=== PATIENT | male | born 1955 | race Caucasian/White ===

== ENCOUNTER → 2020-05-12 08:23 | Outpatient (CLI) | payer MEDICARE, OTHER, SELFPAY ==
[2020-05-12] MEDS: COVID-19 VACC #1, MRNA(MOD) 100 MCG/0.5 ML VIAL IM (09:05)
== END ==
PROVIDERS: Visit Provider Internal Medicine
DX: Z23 Encounter for immunization (principal)
CPT/HCPCS: 0011A; 91301

== ENCOUNTER → 2020-06-09 07:56 | Outpatient (CLI) | payer MEDICARE, OTHER, SELFPAY ==
[2020-06-09] MEDS: COVID-19 VACC #2, MRNA(MOD) 100 MCG/0.5 ML VIAL IM (08:03)
== END ==
PROVIDERS: Visit Provider Internal Medicine
DX: Z23 Encounter for immunization (principal)
CPT/HCPCS: 0012A; 91301

== ENCOUNTER → 2020-07-20 09:40 | Outpatient (CLI) | payer MEDICARE, OTHER, SELFPAY ==
--- NOTE | 2020-07-20 09:45 | DI.RAD.S_ITS ---
PROCEDURE: XR KNEE RT 3V INDICATIONS: RT KNEE PAIN TECHNIQUE: 3 views of the knee were acquired. COMPARISON: None. FINDINGS: Bones: No acute fracture. Chondrocalcinosis is noted. Scattered degenerative subchondral sclerosis and spurring. Mild lateral patellar tilt. There is minimal narrowing of the medial and lateral joint spaces. Soft tissues: Small joint effusion. IMPRESSION: Chondrocalcinosis Mild right knee osteoarthritis Small joint effusion. If the patient's pain or other symptoms persist, consider further evaluation with MRI Dictated by: Bc Navarrete M.D. on 07/20/2020 at 11:28 Approved by: Bc Navarrete M.D. on 07/20/2020 at 11:29
== END ==
PROVIDERS: PCP Family Medicine; Referring Provider Family Medicine; Visit Provider Family Medicine
DX: M25.561 Pain in right knee (principal); M17.11 Unilateral primary osteoarthritis, right knee; M11.261 Other chondrocalcinosis, right knee; M25.461 Effusion, right knee
CPT/HCPCS: 73562

== ENCOUNTER → 2020-07-29 19:35 | Outpatient (CLI) | payer MEDICARE, OTHER, SELFPAY ==
--- NOTE | 2020-07-29 | DI.MRI.S_ITS ---
PROCEDURE: MR KNEE RT WO CON INDICATIONS: Right Knee Pain TECHNIQUE: Noncontrast sagittal PD fast spin echo and T2 fast spin echo with fat saturation, sagittal 3-D FLASH with fat saturation; coronal T1 spin echo and PD fast spin echo with fat saturation, and axial PD fast spin echo with fat saturation through the knee. COMPARISON: [facility], CR, XR KNEE RT 3V, 07/20/2020, 9:58. FINDINGS: Image quality: Diagnostic. Menisci: There is a horizontally oriented longitudinal tear in the anterior horn of lateral meniscus involving the superior articular surface and free edge. Mild extension is also demonstrated to the free edge in the body of the lateral meniscus. There is mild intermediate signal within the posterior horn of the lateral meniscus without extension to an articular surface to suggest a tear. The medial meniscus demonstrates mild radial tearing along the free edge in the body and posterior horn. The meniscal root ligaments appear intact. Cruciate ligaments: The anterior and posterior cruciate ligaments appear intact. Medial structures: The medial collateral ligament appears intact. The semimembranosus tendon insertions and meniscocapsular junction appear intact. Visualized portions of the pes anserinus tendons appear intact without associated bursal fluid collections. Lateral structures: The lateral collateral ligament, long and short heads of the biceps femoris tendon appear intact. The popliteus tendon appears intact. Iliotibial band appears normal. Anterior structures: The quadriceps and patellar tendons appear intact. There is a slight lateral tilt and shift of the patella. No femoral trochlear dysplasia or ventral trochlear prominence. No edema in the infrapatellar fat pad. Bones and cartilage: Mild bone marrow edema is demonstrated peripherally within the medial tibial plateau which may represent reactive subchondral edema from overlying chondral degeneration or a bone contusion. No definite fracture identified. Mild tricompartmental osteophytosis is present. There is mild cartilage thinning in the medial compartment with mild chondral fissuring. In the lateral compartment, there is also mild cartilage thinning with superficial chondral fissuring. In the patellofemoral compartment, there is mild cartilage thinning with superficial chondral fissuring. Joint space: There is a small joint effusion. There is minimal fluid in the expected region of a Cantrell's cyst. There is edema tracking inferiorly along the medial head of the gastrocnemius which may represent sequelae of a ruptured Cantrell's cyst. Normal appearing synovial plicae are incidentally noted. IMPRESSION: 1. Tearing of the medial and lateral menisci as described. 2. Mild to moderate tricompartmental osteoarthritic changes with areas of predominantly superficial chondral fissuring. 3. Bone marrow edema within the medial tibial plateau peripherally may reflect reactive subchondral edema from overlying chondral degeneration or a bone contusion. 4. Small amount of fluid and edema tracking inferiorly along the medial head of the gastrocnemius may reflect sequelae of a repeat Cantrell's cyst. Recommend correlation clinically. 5. Small joint effusion. Dictated by: Shola Dhillon M.D. on 07/30/2020 at 9:33 Approved by: Shola Dhillon M.D. on 07/30/2020 at 9:41
== END ==
PROVIDERS: PCP Family Medicine; Referring Provider Family Medicine; Visit Provider Family Medicine
DX: M25.561 Pain in right knee (principal); S83.281A Other tear of lateral meniscus, current injury, right knee, initial encounter; S83.241A Other tear of medial meniscus, current injury, right knee, initial encounter; M25.461 Effusion, right knee
CPT/HCPCS: 73721

== ENCOUNTER → 2021-03-02 13:47 | Outpatient (CLI) | payer MEDICARE, OTHER, SELFPAY ==
--- NOTE | 2021-03-02 13:50 | DI.CT.S_ITS ---
2PROCEDURE: CT HEAD/BRAIN WO CON INDICATIONS: CONCUSSION TECHNIQUE: Noncontrast 4.5 mm thick angled axial sections acquired from the foramen magnum to the vertex, with coronal and sagittal reformats. For radiation dose reduction, the following was used: automated exposure control, adjustment of mA and/or kV according to patient size. COMPARISON: None. FINDINGS: Image quality: Excellent. CSF spaces: Basal cisterns are patent. No extra-axial fluid collections. The ventricles are symmetric in size and shape. Brain: No intracranial bleeds or masses. There is cerebral volume loss for age, with resultant ventricular and sulcal prominence. There are periventricular and deep white matter chronic small vessel ischemic changes. There is intracranial internal carotid artery atherosclerosis. Skull and face: Posterior scalp contusion can be seen. No underlying calvarial fracture can be seen. Calvarium and visualized facial bones appear intact, without suspicious lesions. Sinuses: Visualized sinuses and mastoids are clear. IMPRESSION: No acute intracranial hemorrhage is seen. No acute intracranial process is seen. Posterior scalp contusion seen, without an associated calvarial fracture. Dictated by: Sukhdev Sifuentes M.D. on 03/02/2021 at 13:48 Approved by: Sukhdev Sifuentes M.D. on 03/02/2021 at 13:49
== END ==
PROVIDERS: PCP Family Medicine; Referring Provider Family Medicine; Visit Provider Family Medicine
DX: S06.0X9A Concussion with loss of consciousness of unspecified duration, initial encounter (principal)
CPT/HCPCS: 70450

== ENCOUNTER → 2022-04-26 15:58 | Outpatient (CLI) | payer MEDICARE, OTHER, SELFPAY ==
[2022-04-26 16:28] LABS: BUN Creatinine Ratio 15.3 (6-22); Blood Urea Nitrogen 15 mg/dL (9-20); Estimated Glomerular Filt Rate > 60 mL/min (>60)
== END ==
PROVIDERS: PCP Family Medicine; Referring Provider Surgery; Visit Provider Surgery
DX: R19.7 Diarrhea, unspecified (principal)
CPT/HCPCS: 36415; 82565; 84520; 99213

== ENCOUNTER → 2022-04-27 09:10 | Outpatient (CLI) | payer MEDICARE, OTHER, SELFPAY ==
--- NOTE | 2022-04-27 09:11 | DI.CT.S_ITS ---
PROCEDURE: CT ABDOMEN PELVIS W CON INDICATIONS: Chronic diarrhea TECHNIQUE: After the administration of intravenous contrast, axial sections acquired from the lung bases to the pubic symphysis. Coronal and sagittal reformats were performed. For radiation dose reduction, the following was used: automated exposure control, adjustment of mA and/or kV according to patient size. COMPARISON: None. FINDINGS: Image quality: Excellent. Lung bases: Unremarkable. Heart: No significant findings. ABDOMEN: Liver: Unremarkable. Gallbladder: Unremarkable. Biliary ducts: Unremarkable. Pancreas: Unremarkable. Spleen: Unremarkable. Adrenal Glands: There is a 1.2 cm in diameter intermediate density right adrenal gland nodule (series 2/image 25). The left adrenal gland is unremarkable. Kidneys and Ureters: Kidneys are normal in size and enhancement. There are bilateral low-density pararenal cysts. Stomach and Bowel: Stomach, small bowel loops, and colon are unremarkable. The appendix is thin walled and gas filled. Peritoneum: No abnormal intraperitoneal fluid. No free air. Ventral Wall: No hernias. Abdominal Nodes: No retroperitoneal or mesenteric adenopathy by size criteria. Vessels: Aorta and inferior vena cava are normal in size. PELVIS: Pelvic Organs: Unremarkable. Bladder: Unremarkable. Pelvic Nodes: No enlarged lymph nodes. Miscellaneous: No hernias are seen. Bones: Unremarkable. IMPRESSION: 1. No acute intra-abdominal findings. Normal appendix. 2. No findings to explain change in bowel habits. Dictated by: Komal Walters M.D. on 04/27/2022 at 12:30 Approved by: Komal Walters M.D. on 04/27/2022 at 12:41
== END ==
PROVIDERS: PCP Family Medicine; Referring Provider Surgery; Visit Provider Surgery
DX: R19.7 Diarrhea, unspecified (principal)
CPT/HCPCS: 74177; 87045; 87177; 87899; Q9967

== ENCOUNTER 2022-05-11 07:09 | Day surgery (SDC) | payer MEDICARE, OTHER, SELFPAY ==
--- NOTE | 2022-05-11 | PATH_ITS ---
[facility] Accession Number: [id number] No. of containers..06 Tissue . 01 Material submitted: . PART A: duodenum - DUODENUM BIOPSIES PART B: gastrointestinal site - ANTRUM BIOPSIES PART C: colon - RIGHT COLON BIOPSY PART D: colon - TRANSVERSE COLON BIOPSY PART E: colon - LEFT COLON BIOPSY PART F: rectum - RECTAL COLON BX . 01 Diagnosis: A. Duodenum, Biopsies: Small bowel mucosa with no diagnostic abnormality. Negative for active inflammation, features of sprue, dysplasia, or malignancy. . B. Antrum, Biopsies: Gastric antral and body mucosa with features of reactive gastropathy. Negative for Helicobacter organisms by immunohistochemistry. Negative for intestinal metaplasia. Negative for dysplasia or malignancy. . C-F: Right, Transverse, Left Colon, Rectum, Biopsies: Colonic mucosa with no diagnostic abnormality. Negative for active, chronic, and microscopic colitis. Negative for dysplasia and malignancy. . [facility] 05/17/2022 1745 Local . 01 Electronically signed: . Yung Kay MD, PhD, Pathologist NPI- [id number] . 01 Gross description: . Part A: DUODENUM BIOPSIES: Received in formalin are 4 fragment(s) of moe, soft tissue measuring 0.2 x 0.1 x 0.1 cm to 0.1 x 0.1 x 0.1 cm submitted entirely in 1 cassette(s) Part B: ANTRUM BIOPSIES: Received in formalin are 4 fragment(s) of moe, soft tissue measuring 0.2 x 0.2 x 0.1 cm to 0.1 x 0.1 x 0.1 cm submitted entirely in 1 cassette(s) Part C: RIGHT COLON BIOPSY: Received in formalin are 2 fragment(s) of moe, soft tissue measuring 0.3 x 0.2 x 0.1 cm to 0.2 x 0.1 x 0.1 cm submitted entirely in 1 cassette(s) Part D: TRANSVERSE COLON BIOPSY: Received in formalin is 1 fragment(s) of moe, soft tissue measuring 0.4 x 0.2 x 0.1 cm submitted entirely in 1 cassette(s) Part E: LEFT COLON BIOPSY: Received in formalin are 2 fragment(s) of moe, soft tissue measuring 0.3 x 0.1 x 0.1 cm to 0.2 x 0.1 x 0.1 cm submitted entirely in 1 cassette(s) Part F: RECTAL COLON BX: Received in formalin are 2 fragment(s) of moe, soft tissue measuring 0.2 x 0.2 x 0.2 cm to 0.2 x 0.1 x 0.1 cm submitted entirely in 1 cassette(s) /CPE 05/12/2022 0616 Local . 01 Microscopic: . B. An immunohistochemical stain was performed to evaluate for Helicobacter organisms and is negative. The control stain showed appropriate reactivity. . * This test was developed and its performance characteristics determined by [employer]. It has not been cleared or approved by the U.S. Food and Drug Administration. The FDA has determined that such clearance or approval is not necessary. This test is used for clinical purposes. It should not be regarded as investigational or for research. . 01 Pathologist provided ICD-10: R19.7, K29.70 . 01 CPT . 438627, 767153, 054793, 924710, 497735, 832708, [id number] Specimen Comment: A courtesy copy of this report has been sent to [phone] Performed at: 01 [facility] [address] [place] [address], [place], [place] [id number] MD Shola Hansen MD Phone: [phone]
[2022-05-11 07:20] VITALS: BP 138/86; PULSE 88; RESP 16; TEMP 36.3; O2SAT 97; BMI 30.8
[2022-05-11] MEDS: LACTATED RINGERS 1,000 ML 120 ML IV (07:37)
--- NOTE | 2022-05-11 08:13 | PM.PREOP ---
Pre-operative Note COVID-19 COVID-19 status: Not tested Interval Note History & Physical reviewed/Exam performed by Physician: Yes Changes to H&P: Yes H&P completed within 30 days and has changed as indicated here:: Normal CT scan and negative stool O&P tests have resulted since our last visit ASA Class (for procedural sedation): II
--- NOTE | 2022-05-11 08:47 | PM.OP.EC ---
Operative Date/Time/Diagnoses Date of procedure: 05/11/22 Time of procedure: 08:47 Pre-op diagnosis: Chronic diarrhea Post-op diagnosis: same Procedure & Clinicians Study performed: EGD and colonoscopy Same procedure as scheduled: Yes Surgeon: Matthew Jorge Procedure Notes Procedure in detail: Surgeon: Matthew Jorge MD Anesthesia: Chelsea Ramirez CRNA Procedure in detail: A timeout was performed. A bite blocked was placed and monitors were attached to the patient. The patient was positioned in a left lateral decubitus position. Sedation was administered by Chelsea Low CRNA. Once the patient was sedated the endoscope was inserted through the bite block and passed through the esophagus and stomach and into the duodenum. No obvious abnormalities were seen in the duodenum. Random biopsies were taken from the second portion of the duodenum. Duodenal bulb was normal. We then withdrew the scope into the stomach. There was mild antritis and random biopsies were taken from the antrum. There were some flecks of old blood throughout the stomach but no obvious ulceration. The endoscope was retroflexed and no hiatal hernia was seen. The endoscope was straightned and withdrawn into the esophagus. No abnormalities were seen in the esophagus. Findings: Mild antritis Next we repositioned the patient for a colonoscopy. A digital rectal exam was performed and was normal. The colonoscope was inserted and advanced to the cecum. The appendiceal orifice was identified and photographed. The scope was slowly withdrawn over greater than 6 minutes. No abnormalities were seen. Random biopsies were taken from the right colon, transverse colon, left colon and rectum. The scope was retroflexed in the rectum and no other abnormalities were seen. Findings: Normal colon EBL: 5 mL Scope withdrawal time: 11 minutes Sedation minutes: 22 minutes Post-procedure Disposition: PACU
[2022-05-11 08:50] VITALS: BP 107/75; PULSE 89; RESP 12; TEMP 36.2; O2SAT 95
[2022-05-11 08:56] VITALS: BP 100/71; PULSE 82; RESP 14; O2SAT 96
[2022-05-11 09:00] VITALS: BP 122/82; PULSE 80; RESP 16; O2SAT 96
== END 2022-05-11 09:44 | disposition home or self-care (01) ==
PROVIDERS: PCP Family Medicine; Referring Provider Surgery; Visit Provider Surgery
PROC: 0DJ08ZZ Inspection of Upper Intestinal Tract, Via Natural or Artificial Opening Endoscopic (ICD-10-PCS; CPT 43235; principal; 2022-05-11 08:15)
PROC: 0DJD8ZZ Inspection of Lower Intestinal Tract, Via Natural or Artificial Opening Endoscopic (ICD-10-PCS; CPT 45378; 2022-05-11 08:15)
DX: R19.7 Diarrhea, unspecified (principal); K29.50 Unspecified chronic gastritis without bleeding; K31.9 Disease of stomach and duodenum, unspecified
CPT/HCPCS: 45380; 43239; J2704

== ENCOUNTER → 2022-05-20 12:09 | Outpatient (CLI) | payer MEDICARE, OTHER, SELFPAY ==
--- NOTE | 2022-05-20 12:11 | DI.MRI.S_ITS ---
PROCEDURE: MR LUMBAR SPINE WO CON INDICATIONS: Low back pain, unspecified TECHNIQUE: Noncontrast sagittal T1 spin echo and T2 fast echo, sagittal STIR, and T2 fast spin echo through the lumbar spine. In cases with scoliosis, additional coronal T2 fast spin echo may be performed. COMPARISON: [facility], CT, CT ABDOMEN PELVIS W CON, 04/27/2022, 10:36. FINDINGS: Image quality: Excellent. Alignment and Curvature: 5 lumbar type vertebral bodies are present by CT. There is loss of normal lumbar lordosis. Roughly 3 mm of retrolisthesis of L1 on L2. 4 mm of retrolisthesis of L2 on L3 , L3 on L4, L4 on L5, and L5 on S1. Bone Marrow: Marrow is of normal overall signal. No acute vertebral body compression fractures. Mild reactive signal throughout the endplates of the lumbar and lower thoracic spine. Spinal Cord: Conus medullaris terminates at the L1-L2 disc space level. Visualized cord demonstrates normal signal and size. Paraspinous Soft Tissues: No paravertebral masses. T12-L1: Mild disc height loss and desiccation. Mild facet and ligamentum flavum hypertrophy. Mild epidural lipomatosis. No significant canal, or foraminal stenosis. L1-L2: Mild disc height loss. Moderate disc desiccation. Mild diffuse disc bulge. Mild facet and ligamentum flavum hypertrophy. Mild epidural lipomatosis. Mild canal stenosis. Mild bilateral foraminal stenosis. L2-L3: Mild disc desiccation and diffuse disc bulge. Mild epidural lipomatosis. Mild canal stenosis. Mild bilateral foraminal stenosis. L3-L4: Mild disc height loss and desiccation. Moderate diffuse disc bulge. Mild facet and ligamentum flavum hypertrophy. Mild epidural lipomatosis. Mild canal stenosis. Mild bilateral foraminal stenosis. L4-L5: Mild disc desiccation and diffuse disc bulge. Mild facet and ligamentum flavum hypertrophy. Mild epidural lipomatosis. Mild canal stenosis. Mild left foraminal stenosis. No right foraminal stenosis. L5-S1: Severe disc height loss and desiccation. Moderate diffuse disc bulge. Mild bilateral facet hypertrophy. Mild canal stenosis. Mild bilateral foraminal stenosis. IMPRESSION: 1. Multilevel degenerative disc and facet disease, as well as ligamentum flavum hypertrophy and epidural lipomatosis. 2. Mild multilevel canal and foraminal stenoses. No neural impingement. Dictated by: Gian Felix M.D. on 05/22/2022 at 9:36 Approved by: Gian Felix M.D. on 05/22/2022 at 10:12
== END ==
PROVIDERS: PCP Family Medicine; Referring Provider Family Medicine; Visit Provider Family Medicine
DX: M54.50 Low back pain, unspecified (principal); M51.36 Other intervertebral disc degeneration, lumbar region; M47.816 Spondylosis without myelopathy or radiculopathy, lumbar region; M46.06 Spinal enthesopathy, lumbar region; E88.2 Lipomatosis, not elsewhere classified; M48.061 Spinal stenosis, lumbar region without neurogenic claudication
CPT/HCPCS: 72148

== ENCOUNTER → 2022-11-01 15:19 | Outpatient (CLI) | payer MEDICARE, OTHER, SELFPAY ==
[2022-11-02 13:12] LABS: PSA, Total 0.1 ng/mL (0.0-4.0)
== END ==
PROVIDERS: PCP Family Medicine; Referring Provider Family Medicine; Visit Provider Family Medicine
DX: Z00.00 Encounter for general adult medical examination without abnormal findings (principal); Z12.5 Encounter for screening for malignant neoplasm of prostate
CPT/HCPCS: 36415; 84153; 84154; G0103

== ENCOUNTER → 2023-11-18 12:49 | Outpatient (CLI) | payer MEDICARE, OTHER, SELFPAY ==
--- NOTE | 2023-11-18 13:11 | DI.CT.S_ITS ---
PROCEDURE: CT ABDOMEN ADRENAL PROTOCOL INDICATIONS: LOW SERUM ANDRENOCORTICOTROPHIC HORMONES/KALEY TECHNIQUE: Noncontrast 3 mm thick sections acquired from the diaphragms to the iliac crests. After the administration of intravenous contrast, 3 mm thick venous-phase and 15-minute delayed images acquired from the diaphragms to the iliac crests. For radiation dose reduction, the following was used: automated exposure control, adjustment of mA and/or kV according to patient size. COMPARISON: [facility], CT, CT ABDOMEN PELVIS W CON, 04/27/2022, 10:36. FINDINGS: Image quality: Excellent. Lower chest: Unremarkable. ABDOMEN: Adrenal Glands: As seen on previous CT study, there is a 1.2 x 0.9 cm hypodense nodule seen in medial limb of right adrenal gland. This nodule measures -6 Hounsfield unit in density series 2, image 38 and is consistent with benign lipid rich adrenal adenoma. Normal contrast enhancement and washout is also noted in this nodule. No discrete left adrenal nodule is seen. Liver: No solid mass. Simple cyst in left hepatic dome is again seen unchanged from prior study. Gallbladder: No radiopaque gallstones or wall thickening. Biliary ducts: No biliary dilation. Pancreas: No ductal dilation. Spleen: Size is within normal limits. Kidneys and Ureters: No hydronephrosis. No solid mass. No complex renal cystic lesion which requires follow up. Stomach and Bowel: Normal colonic caliber, without significant wall thickening. No abscess collection. Peritoneum: No abnormal intraperitoneal fluid. No free air. Ventral Wall: No hernia. Abdominal Nodes: No retroperitoneal or mesenteric adenopathy by size criteria. Vessels: Aorta and inferior vena cava are normal in size. Bones: No aggressive osseous abnormality. IMPRESSION: 1. 1.2 x 0.9 cm oval hypodense nodule in right adrenal gland with density measurements consistent with benign lipid rich adrenal adenoma. No discrete left adrenal nodule is noted. 2. No acute inflammatory process is seen in abdomen. No free fluid or free air. 3. Stable left hepatic cyst. Dictated by: César Valero M.D. on 11/18/2023 at 23:34 Approved by: César Valero M.D. on 11/18/2023 at 23:41
== END ==
LOC: CT 12:50
PROVIDERS: PCP Family Medicine; Referring Provider Family Medicine; Visit Provider Family Medicine
DX: E27.1 Primary adrenocortical insufficiency (principal); K76.89 Other specified diseases of liver; R79.89 Other specified abnormal findings of blood chemistry
CPT/HCPCS: 74170; Q9967

== ENCOUNTER → 2023-12-08 13:53 | Outpatient (CLI) | payer MEDICARE, OTHER, SELFPAY ==
--- NOTE | 2023-12-08 | DI.MRI.S_ITS ---
PROCEDURE: MR BRAIN (PIT[facility]ARY) [facility] INDICATIONS: HYPOGONADISM/AKLEY'S DISEASE TECHNIQUE: Noncontrast sagittal and axial FLAIR, axial gradient echo, axial diffusion and ADC through the brain. Thin-slice sagittal and coronal T1 spin echo, coronal T2 fast spin echo through the pituitary. After the administration contrast, optional dynamic coronal T1 spin echo, thin-slice coronal and sagittal T1 spin echo images through the pituitary fossa; axial and coronal and sagittal T1 spin echo with fat saturation through the brain. COMPARISON: [facility], CT, CT HEAD/BRAIN WO CON, 03/02/2021, 14:25. FINDINGS: Image quality: This examination is limited by involuntary motion artifact. Pituitary Gland: The pituitary tissue is largely flattened along the floor of this are sella turcica, which is considered to be an anatomic variant. On the postcontrast imaging, no masses or abnormally enhancing areas are seen. The pituitary stalk and infundibulum have an unremarkable appearance. A normal appearing pituitary bright spot is seen posteriorly on the precontrast sagittal T1-weighted images. The optic chiasm and the ventral forebrain have an unremarkable appearance. CSF Spaces: Ventricles are normal in size and shape. Basal cisterns are patent. No extra-axial fluid collections. Brain: No intracranial bleeds or mass effects. No abnormal intracranial enhancement. Bass-white matter interface is intact. Diffusion weighted images demonstrate no acute ischemic insults. Brainstem is normal. Normal intravascular flow voids are present. Skull and face: Calvarial marrow is normal in signal. Orbits appear normal. Apparent scalp postoperative change can be seen posteriorly. Sinuses: Sinuses and mastoids are clear. IMPRESSION: No imaging explanation is found for this patient's presenting symptoms. Dictated by: Sukhdev Sifuentes M.D. on 12/10/2023 at 11:24 Approved by: Sukhdev Sifuentes M.D. on 12/10/2023 at 11:29
== END ==
LOC: MRI 13:54
PROVIDERS: PCP Family Medicine; Referring Provider Family Medicine; Visit Provider Family Medicine
DX: D44.11 Neoplasm of uncertain behavior of right adrenal gland (principal); E29.1 Testicular hypofunction; E27.1 Primary adrenocortical insufficiency
CPT/HCPCS: 70553; A9579

== ENCOUNTER → 2023-12-31 08:12 | Outpatient (ROUT) | payer MEDICARE, OTHER, SELFPAY ==
[2023-12-31 08:24] LABS: Prothrombin Time 10.8 SECONDS (9.4-12.5)
[2023-12-31 08:27] LABS: PTT Partial Thromboplastin Tim 28 SECONDS (25.1-36.5)
== END ==
PROVIDERS: PCP Family Medicine; Visit Provider Family Medicine
DX: D69.9 Hemorrhagic condition, unspecified (principal)
CPT/HCPCS: 85610; 85730

== ENCOUNTER → 2024-02-03 12:26 | Outpatient (CLI) | payer MEDICARE, OTHER, SELFPAY ==
--- NOTE | 2024-02-03 12:27 | DI.ECHO.S_ITS ---
[facility] : : [id number] : [place] : : [id number] : : Phone: [phone] Echocardiogram Report + + :Name: YA SCHWARTZ Study Date: 02/03/2024 Height: 73 in : :Hospital ReadingLocation: Weight: 270 lb : : Gender: Male BSA: 2.4 m2 : :: 1955 Age: 68 yrs BP: 155/94 mmHg: :Reason For Study: EDEMA : :Ordering Physician: KIKI, : :DL Performed By: Gilberto Zhang : :Referring: DL SWANSON : + + Interpretation Summary TDS - BODY HABITUS The patient was in atrial fibrillation with heart rates between 70-80 bpm during the exam. The left ventricle is normal in size. Left ventricular ejection fraction is estimated to be 55 +/- 5%. The right ventricle is grossly normal size. The right ventricular systolic function is normal. No significant valvular pathology seen The inferior vena cava was not visualized. Procedure: A two-dimensional transthoracic echocardiogram with color flow and Doppler was performed. There is no prior echocardiogram noted for this patient. The study quality was technically difficult. The patient was in atrial fibrillation with heart rates between 70-80 bpm during the exam. Left Ventricle: The left ventricle is normal in size. Proximal septal thickening is noted. There is no thrombus. Left ventricular ejection fraction is estimated to be 55 +/- 5%. There are no focal wall motion abnormalities. Diastolic function could not be accurately assessed due to atrial fibrillation. Right Ventricle: The right ventricle is grossly normal size. The right ventricular systolic function is normal. Atria: The left atrial size is normal. Right atrial size is normal. There is no Doppler evidence for an atrial septal defect. Mitral Valve: The mitral valve leaflets appear mildly thickened, but open well. There is trace mitral regurgitation. Aortic Valve: The aortic valve is trileaflet. The aortic valve opens well. There is no aortic valve stenosis. No aortic regurgitation is present. Tricuspid Valve: The tricuspid valve leaflets are thin and pliable. Pulmonary artery pressures cannot be estimated because of the lack of a measurable TR jet velocity. There is trace tricuspid regurgitation. Pulmonic Valve: The pulmonic valve is not well visualized. There is no pulmonic valvular regurgitation. Great Vessels: The aortic root is normal size. The ascending aorta is at the upper limits of normal in size. The pulmonary artery is normal size. The inferior vena cava was not visualized. Pericardium/ Pleura There is no pericardial effusion. There is an anterior echo-free space consistent with a fat pad. MMode/2D Measurements & Calculations LVIDd: 5.4 cm LVOT diam: 2.3 cm LVIDs: 3.3 cm Ao root diam: 3.4 cm FS: 38.9 % asc Aorta Diam: 3.9 cm EPSS: 0.55 cm IVSd: 1.1 cm LVPWd: 1.0 cm LV campa. diameter/BSA (cm/m^2): 2.2 LV sys. diameter/BSA (cm/m^2): 1.3 LA A2 area: 19.0 cm2 RA long axis: 5.5 cm LA A4 area: 19.1 cm2 RA area: 14.5 cm2 LA length (vol): 5.7 cm RA vol: 32.7 ml LA vol: 54.0 ml RA : 13.4 ml/m2 LA vol index: 22.1 ml/m2 RVD1 (basal): 4.0 cm RVD2 (mid): 4.1 cm TAPSE: 2.6 cm Doppler Measurements & Calculations Ao V2 max: 111.0 cm/sec LVOT Max Ramesh: 99.9 cm/sec Ao V2 mean: 80.2 cm/sec LV V1 max P.0 mmHg Ao max P.0 mmHg LV V1 VTI: 19.2 cm Ao mean P.9 mmHg CAROLYN(I,D): 3.8 cm2 Ao V2 VTI: 20.7 cm CAROLYN(V,D): 3.7 cm2 sev ratio: 0.92 CAROLYN indexed to BSA (cm^2/m^2): 1.5 MV E max ramesh: 41.0 cm/sec PA V2 max: 85.6 cm/sec MV A max ramesh: 68.7 cm/sec PA V2 mean: 64.3 cm/sec MV E/A: 0.60 PA mean P.8 mmHg Med Peak E' Ramesh: 6.7 cm/sec PA pr(Accel): 39.6 mmHg E/E' med: 6.1 Lat Peak E' Ramesh: 4.5 cm/sec E/E' lat: 9.1 E/e' average: 7.6 MV dec time: 0.16 sec SV(LVOT): 77.9 ml Reading Physician:04:21 PM
== END ==
PROVIDERS: PCP Family Medicine; Referring Provider Family Medicine; Visit Provider Family Medicine
DX: R06.02 Shortness of breath (principal); R60.1 Generalized edema
CPT/HCPCS: 93306

== ENCOUNTER → 2024-02-06 07:27 | Outpatient (CLI) | payer MEDICARE, OTHER, SELFPAY ==
--- NOTE | 2024-02-06 07:29 | DI.CT.S_ITS ---
PROCEDURE: CT CHEST W CON INDICATIONS: CHRONIC COUGH TECHNIQUE: After the administration of intravenous contrast, 5 mm thick sections acquired from the pulmonary apices to the posterior costophrenic angles. 1 mm axial lung, 5 mm thick coronal and sagittal reformats and 7 mm axial MIP were acquired. For radiation dose reduction, the following was used: automated exposure control, adjustment of mA and/or kV according to patient size. COMPARISON: None. FINDINGS: Image quality: Diagnostic. Lower Neck: No enlarged lymph nodes. Thyroid: No thyroid nodules which require sonographic follow up, per consensus guidelines. Axillae: No enlarged lymph nodes. Chest Wall: Unremarkable. Bones: Unremarkable. Lungs and Pleura: No pneumothorax or pleural effusions. 5-6 millimeter solid nodule on the right lower lobe (series 3, image 162). Heart: Heart size is normal. No pericardial effusion. Three-vessel coronary calcifications. Thoracic Vessels: The aorta and pulmonary arteries demonstrate normal size. Mediastinum and Zeinab: No enlarged lymph nodes. Esophagus: No wall thickening. No hiatal hernia. Upper Abdomen: Stable right adrenal nodule. Hepatic cysts. The IMPRESSION: No findings to explain patient's face and lower extremity edema. 5- 6 millimeter solid nodule in the right lower lobe. Consider 12 month follow-up if at high risk for developing cancer, per Fleischner society guidelines. Dictated by: Román Salvador M.D. on 02/06/2024 at 11:15 Approved by: Román Salvador M.D. on 02/06/2024 at 11:20
[2024-02-06 08:17] LABS: Estimated Glomerular Filt Rate > 60 mL/min (>60)
== END ==
PROVIDERS: Radiology Diagnostic Radiology; PCP Family Medicine; Referring Provider Family Medicine; Visit Provider Family Medicine
DX: R05.3 Chronic cough (principal); R91.1 Solitary pulmonary nodule; I25.10 Atherosclerotic heart disease of native coronary artery without angina pectoris; E27.9 Disorder of adrenal gland, unspecified; K76.89 Other specified diseases of liver
CPT/HCPCS: 36415; 71260; 82565; Q9967

== ENCOUNTER → 2024-02-08 13:05 | Outpatient (CLI) | payer MEDICARE, OTHER, SELFPAY | LOC: WC 13:09 | PROVIDERS: PCP Family Medicine; Referring Provider Family Medicine; Visit Provider Physician Assistant | DX: L98.8 Other specified disorders of the skin and subcutaneous tissue (principal); S81.802A Unspecified open wound, left lower leg, initial encounter; S81.801A Unspecified open wound, right lower leg, initial encounter; E27.1 Primary adrenocortical insufficiency; S81.001A Unspecified open wound, right knee, initial encounter; E11.628 Type 2 diabetes mellitus with other skin complications; I10 Essential (primary) hypertension; E03.9 Hypothyroidism, unspecified; Z79.52 Long term (current) use of systemic steroids | CPT/HCPCS: 11042; 87070; 87077; 87147; 87186; 87205; 99204; 99213 ==

== ENCOUNTER → 2024-02-15 11:17 | Outpatient (CLI) | payer MEDICARE, OTHER, SELFPAY | PROVIDERS: PCP Family Medicine; Referring Provider Family Medicine; Visit Provider Surgery | DX: L98.8 Other specified disorders of the skin and subcutaneous tissue (principal); S81.801A Unspecified open wound, right lower leg, initial encounter; S81.802A Unspecified open wound, left lower leg, initial encounter; S81.001A Unspecified open wound, right knee, initial encounter; D89.89 Other specified disorders involving the immune mechanism, not elsewhere classified; E11.628 Type 2 diabetes mellitus with other skin complications; E27.1 Primary adrenocortical insufficiency; Z79.52 Long term (current) use of systemic steroids | CPT/HCPCS: 11042; 99214 ==

== ENCOUNTER → 2024-02-22 10:48 | Outpatient (CLI) | payer MEDICARE, OTHER, SELFPAY | PROVIDERS: PCP Family Medicine; Referring Provider Family Medicine; Visit Provider Physician Assistant | DX: L98.8 Other specified disorders of the skin and subcutaneous tissue (principal); S81.802A Unspecified open wound, left lower leg, initial encounter; S81.801A Unspecified open wound, right lower leg, initial encounter; E11.628 Type 2 diabetes mellitus with other skin complications; E27.1 Primary adrenocortical insufficiency; I10 Essential (primary) hypertension | CPT/HCPCS: 11042; 99214 ==

== ENCOUNTER → 2024-02-29 13:20 | Outpatient (CLI) | payer MEDICARE, OTHER, SELFPAY | PROVIDERS: PCP Family Medicine; Referring Provider Family Medicine; Visit Provider Physician Assistant | DX: L03.211 Cellulitis of face (principal); L98.8 Other specified disorders of the skin and subcutaneous tissue; S81.802A Unspecified open wound, left lower leg, initial encounter; D89.89 Other specified disorders involving the immune mechanism, not elsewhere classified; E11.628 Type 2 diabetes mellitus with other skin complications; E27.1 Primary adrenocortical insufficiency; Z79.52 Long term (current) use of systemic steroids | CPT/HCPCS: 11042; 99214 ==

== ENCOUNTER → 2024-03-07 10:45 | Outpatient (CLI) | payer MEDICARE, OTHER, SELFPAY | LOC: WC 10:48 | PROVIDERS: PCP Family Medicine; Referring Provider Family Medicine; Visit Provider Physician Assistant | DX: L98.8 Other specified disorders of the skin and subcutaneous tissue (principal); S81.802A Unspecified open wound, left lower leg, initial encounter; S31.109A Unspecified open wound of abdominal wall, unspecified quadrant without penetration into peritoneal cavity, initial encounter; L53.9 Erythematous condition, unspecified; E11.628 Type 2 diabetes mellitus with other skin complications; E27.1 Primary adrenocortical insufficiency; I10 Essential (primary) hypertension; E03.9 Hypothyroidism, unspecified | CPT/HCPCS: 11042; 99213 ==

== ENCOUNTER → 2024-03-14 10:08 | Outpatient (CLI) | payer MEDICARE, OTHER, SELFPAY | PROVIDERS: PCP Family Medicine; Referring Provider Family Medicine; Visit Provider Physician Assistant | DX: L98.8 Other specified disorders of the skin and subcutaneous tissue (principal); S81.802A Unspecified open wound, left lower leg, initial encounter; S31.109A Unspecified open wound of abdominal wall, unspecified quadrant without penetration into peritoneal cavity, initial encounter; L53.9 Erythematous condition, unspecified; R60.0 Localized edema; E11.628 Type 2 diabetes mellitus with other skin complications; D89.89 Other specified disorders involving the immune mechanism, not elsewhere classified; E27.1 Primary adrenocortical insufficiency; I10 Essential (primary) hypertension; E03.9 Hypothyroidism, unspecified | CPT/HCPCS: 11042; 99213 ==

== ENCOUNTER → 2024-03-28 10:28 | Outpatient (CLI) | payer MEDICARE, OTHER, SELFPAY | PROVIDERS: PCP Family Medicine; Referring Provider Family Medicine; Visit Provider Physician Assistant | DX: D89.89 Other specified disorders involving the immune mechanism, not elsewhere classified (principal); E27.1 Primary adrenocortical insufficiency; Z79.52 Long term (current) use of systemic steroids; E11.69 Type 2 diabetes mellitus with other specified complication; L02.211 Cutaneous abscess of abdominal wall | CPT/HCPCS: 99212; 99213 ==

== ENCOUNTER → 2024-04-03 07:29 | Outpatient (CLI) | payer MEDICARE, OTHER, SELFPAY ==
--- NOTE | 2024-04-03 07:30 | DI.US.S_ITS ---
PROCEDURE: US ABDOMEN LIMITED INDICATIONS: possible abscess in area of concern TECHNIQUE: Real-time focused scanning was performed of the abdomen, with image documentation. COMPARISON: None. FINDINGS: In the area of current clinical concern for possible underlying abscess a relatively subtle superficial hypoechoic region within the soft tissues is present measuring 3 x 5 x 9 mm, without central fluid or prominent peripheral elevated vascularity. IMPRESSION: Presumed healing wound rather than abscess formation in the area of current clinical concern. Dictated by: Justice Briones M.D. on 04/03/2024 at 9:23 Approved by: Justice Briones M.D. on 04/03/2024 at 9:25
--- NOTE | 2024-04-03 07:43 | DI.US.S_ITS ---
PROCEDURE: US PERIPH VENOUS LOW EXTREM BI INDICATIONS: abnormal swelling of bilateral lower legs TECHNIQUE: Real-time imaging, as well as color and pulse Doppler interrogation, were performed of the deep veins of both legs from the inguinal ligament to the popliteal fossa, with documentation of the visualized calf veins. COMPARISON: None. FINDINGS: Right: The common femoral, femoral, popliteal, and the visualized calf veins are normally compressible, and free of intraluminal thrombus. Color and pulse Doppler demonstrate normal phasic intravascular flow. There is normal augmentation response to distal compression maneuver. Left: The common femoral, femoral, popliteal, and the visualized calf veins are normally compressible, and free of intraluminal thrombus. Color and pulse Doppler demonstrate normal phasic intravascular flow. There is normal augmentation response to distal compression maneuver. IMPRESSION: No findings of deep venous thrombosis in either lower extremity. Dictated by: Justice Briones M.D. on 04/03/2024 at 9:25 Approved by: Justice Briones M.D. on 04/03/2024 at 9:25
== END ==
PROVIDERS: PCP Family Medicine; Referring Provider Physician Assistant; Visit Provider Physician Assistant
DX: M79.89 Other specified soft tissue disorders (principal); L02.818 Cutaneous abscess of other sites
CPT/HCPCS: 76705; 93970

== ENCOUNTER → 2024-04-25 06:43 | Outpatient (CLI) | payer MEDICARE, OTHER, SELFPAY ==
--- NOTE | 2024-04-25 06:44 | DI.US.S_ITS ---
PROCEDURE: US ABDOMEN COMPLETE INDICATIONS: OTHER ASCITES TECHNIQUE: Real-time scanning was performed of the abdominal and retroperitoneal organs, with image documentation. COMPARISON: [facility], CT, CT ABDOMEN ADRENAL PROTOCOL, 11/18/2023, 12:57. [facility], CT, CT CHEST W CON, 02/06/2024, 8:45. [facility], US, US ABDOMEN LIMITED, 04/03/2024, 7:52. FINDINGS: Liver: Liver is normal in size and homogeneous in echotexture. 2.4 x 2.2 cm cyst in the left hepatic lobe. Normal portal vein Gallbladder: Sonolucent without evidence cholelithiasis, gallbladder wall thickening or pericholecystic fluid. No sonographic Hadley sign. Common bile duct: 6.4 mm. Pancreas: Visualized portions of the pancreas are within normal limits. Spleen: Spleen is normal in size and homogeneous in echotexture. Kidneys: Kidneys are normal in size and echotexture. No hydronephrosis or nephrolithiasis. No solid mass lesions. Aorta: Visualized aorta is unremarkable without aneurysm. Iliac Arteries: Proximal common iliac arteries are unremarkable. IVC: Intrahepatic inferior vena cava is patent. Miscellaneous: No free abdominal fluid. IMPRESSION: Small hepatic cyst, 2.4 cm Approved by: Neptali Davila M.D. on 04/25/2024 at 18:44
== END ==
PROVIDERS: PCP Family Medicine; Referring Provider Internal Medicine Gastroenterology; Visit Provider Internal Medicine Gastroenterology
DX: K76.89 Other specified diseases of liver (principal); R18.8 Other ascites
CPT/HCPCS: 76700

== ENCOUNTER → 2024-05-21 08:14 | Outpatient (CLI) | payer MEDICARE, OTHER, SELFPAY ==
--- NOTE | 2024-05-21 08:15 | DI.NM.S_ITS ---
PROCEDURE: NM EXERCISE TREADMILL NON NUC COMPARISON: None. INDICATIONS: PAROXYSMAL AFIB FINDINGS: The patient exercised for 6 minutes and 40 seconds reaching 97% of maximum predicted heart rate. Appropriate BP response to exercise. 7.0 METs, STEVE +3%. Rare PVCs present. No chest pain and no diagnostic ST changes during exercise or recovery. IMPRESSION: Low risk, normal treadmill ECG only stress test from inducible ischemia standpoint. Fair exercise tolerance (STEVE +3%). Dictated by: Marika Wiggins MD on 05/22/2024 at 16:47 Approved by: Marika Wiggins MD on 05/22/2024 at 16:49
== END ==
PROVIDERS: PCP Family Medicine; Referring Provider Internal Medicine; Visit Provider Internal Medicine
DX: I48.0 Paroxysmal atrial fibrillation (principal)
CPT/HCPCS: 93017

== ENCOUNTER → 2025-02-10 07:29 | Outpatient (CLI) | payer MEDICARE, OTHER, SELFPAY ==
--- NOTE | 2025-02-10 07:31 | DI.US.S_ITS ---
PROCEDURE: US RENAL COMPLETE INDICATIONS: Cyst of kidney, acquired TECHNIQUE: Real-time scanning was performed of the kidneys and bladder, with image documentation. COMPARISON: [facility], CT, CT CHEST W CON, 02/06/2024, 8:45. [facility], US, US ABDOMEN COMPLETE, 04/25/2024, 6:53. FINDINGS: Kidneys: Kidneys are normal in size. Right kidney measures 11.2 cm long; left kidney measures 11 point cm long. Right renal cortical thickness is 1.4 cm; left renal cortical thickness is 1.5 cm. Renal cortical echotexture is normal. No hydronephrosis or nephrolithiasis. No suspicious solid mass lesions. Many benign renal sinus cysts are present. No internal complexity is identified. Bladder: Pre-void bladder volume is 354 mL. Post-void residual is 26 mL. Pre- void images demonstrate no intraluminal masses or stones. On pre-void images, neither ureteral jets are noted with color Doppler interrogation. (Of note, ureteral jets may not be detectable in up to 25% of cases due to insufficient differences in specific gravity between ureteral and bladder urine). Miscellaneous: No free pelvic fluid. IMPRESSION: Benign bilateral renal sinus cysts. Dictated by: Román Salvador M.D. on 02/10/2025 at 12:12 Approved by: Román Salvador M.D. on 02/10/2025 at 12:14
== END ==
LOC: US 07:30
PROVIDERS: PCP Family Medicine; Referring Provider Family Medicine; Visit Provider Family Medicine
DX: N28.1 Cyst of kidney, acquired (principal)
CPT/HCPCS: 76770